=== PATIENT | female | born 1930 | race Caucasian/White ===

== ENCOUNTER 2018-09-05 17:57 | Inpatient (IN) | payer MEDICARE ==
--- NOTE | 2018-09-05 20:11 | ED Physician Chart ---
ED Chief Complaint/HPI - Patient Information Date Seen:: 09/05/18 Time Seen:: 20:10 Chief Complaint:: Weakness and edema of BLE History of Present Illness:: 88 yo female was brought by daughter to ER for evaluation of increasing weakness , decreased oral intake and edema of bilateral lower extremities. Pt oriented to self but non-verbal on arrival. Allergies:: Allergies Allergy/AdvReac Type Severity Reaction Status Date / Time codeine Allergy Verified 09/05/18 18:43 Vitals:: Vital Signs - 8 hr 09/05/18 18:45 Temp 98.1 F HR 71 RR 16 BP 164/85 O2 Sat % 98 ED Review of Systems - Review of Systems General/Constitutional: No fever, Weakness Skin: No rash Head: No headache Eyes: No pain ENT: No nasal drainage Neck: No neck pain Cardio Vascular: No chest pain, edema Pulmonary: No SOB GI: No nausea, No vomiting Musculoskeletal: No bone or joint pain Neurological: No focal symptoms ED Past Medical History - Past Medical History Past Medical History: HTN, DM, Dementia, Other (CKD stage 4) Social History: Non Smoker, No Alcohol, No Drug Use Family Medical History - Family Member Daughter History Unknown: Yes Living Status: Still Living ED Physical Exam - Physical Examination General/Constitutional: Awake, Alert Head: Atraumatic Eyes: PERRL Skin: No ecchymosis ENMT: Nasal exam nl Neck: No nuchal rigidity Respiratory: No Wheeze/Rhonchi/Rales Cardio Vascular: RRR, No murmur, gallop, rubs, NL S1 S2 GI: No tenderness/rebounding/guarding Other Extremities comments:: 1+ edema in bilateral lower extremities Neuro/Psych: No focal deficits ED Labs/Radiology/EKG Results - Lab Results Results: Laboratory Last Values WBC 10.6 Th/cmm (4.8-10.8) 09/06/18 05:30 RBC 4.02 Mil/cmm (3.80-5.20) 09/06/18 05:30 Hgb 12.2 gm/dL (12-16) 09/06/18 05:30 Hct 36.8 % (41.0-60) L 09/06/18 05:30 MCV 91.5 fl (81-100) 09/06/18 05:30 MCH 30.4 pg (27.0-31.0) 09/06/18 05:30 MCHC Differential 33.2 pg (28.0-36.0) 09/06/18 05:30 RDW 13.8 % (11.5-20.0) 09/06/18 05:30 Plt Count 216 Th/cmm (150-400) 09/06/18 05:30 MPV 8.0 fl 09/06/18 05:30 Neutrophils % 78.7 % (40.0-80.0) 09/06/18 05:30 Lymphocytes % 14.0 % (20.0-50.0) L 09/06/18 05:30 Monocytes % 4.8 % (2.0-10.0) 09/06/18 05:30 Eosinophils % 1.9 % (0.0-5.0) 09/06/18 05:30 Basophils % 0.6 % (0.0-2.0) 09/06/18 05:30 Sodium 144 mEq/L (136-145) 09/06/18 05:30 Potassium 4.2 mEq/L (3.5-5.1) 09/06/18 05:30 Chloride 109 mEq/L (98-107) H 09/06/18 05:30 Carbon Dioxide 28.6 mEq/L (21.0-31.0) 09/06/18 05:30 Anion Gap 10.6 (7.0-16.0) 09/06/18 05:30 BUN 32 mg/dL (7-25) H 09/06/18 05:30 Creatinine 1.5 mg/dL (0.6-1.2) H 09/06/18 05:30 Est GFR ( Amer) TNP 09/06/18 05:30 Est GFR (Non-Af Amer) TNP 09/06/18 05:30 BUN/Creatinine Ratio 21.3 09/06/18 05:30 Glucose 155 mg/dL (70-105) H D 09/06/18 05:30 Calcium 9.0 mg/dL (8.6-10.3) 09/06/18 05:30 Total Bilirubin 0.2 mg/dL (0.3-1.0) L 09/05/18 20:40 AST 18 U/L (13-39) 09/05/18 20:40 ALT 11 U/L (7-52) 09/05/18 20:40 Alkaline Phosphatase 96 U/L (34-104) 09/05/18 20:40 Troponin I 0.01 ng/mL (0.01-0.05) 09/05/18 20:40 B-Natriuretic Peptide 88.1 pg/mL (5.0-100.0) 09/05/18 20:40 Total Protein 7.3 gm/dL (6.0-8.3) 09/05/18 20:40 Albumin 3.5 gm/dL (3.7-5.3) L 09/05/18 20:40 Globulin 3.8 gm/dL 09/05/18 20:40 Albumin/Globulin Ratio 0.9 (1.0-1.8) L 09/05/18 20:40 TSH 2.69 uIU/ml (0.34-5.60) 09/05/18 20:40 Urine Source CLEAN C 09/05/18 23:10 Urine Color YELLOW 09/05/18 23:10 Urine Clarity HAZY (CLEAR) 09/05/18 23:10 Urine pH 7.0 (4.6 - 8.0) 09/05/18 23:10 Ur Specific [place] 1.020 (1.005-1.030) 09/05/18 23:10 Urine Protein TRACE mg/dL (NEGATIVE) 09/05/18 23:10 Urine Glucose (UA) 100 mg/dL (NEGATIVE) H 09/05/18 23:10 Urine Ketones NEGATIVE mg/dL (NEGATIVE) 09/05/18 23:10 Urine Blood NEGATIVE (NEGATIVE) 09/05/18 23:10 Urine Nitrate POSITIVE (NEGATIVE) H 09/05/18 23:10 Urine Bilirubin NEGATIVE (NEGATIVE) 09/05/18 23:10 Urine Urobilinogen 0.2 E.U./dL (0.2 - 1.0) 09/05/18 23:10 Ur Leukocyte Esterase TRACE (NEGATIVE) H 09/05/18 23:10 Urine RBC 0-2 /hpf (0-5) 09/05/18 23:10 Urine WBC 2-5 /hpf (0-5) 09/05/18 23:10 Ur Epithelial Cells FEW /lpf (FEW) 09/05/18 23:10 Urine Bacteria MANY /hpf (NONE SEEN) H 09/05/18 23:10 - Radiology Results Results: CXR: no focal consolidation - EKG Interpretations EKG Time:: 20:51 Rate & Rhythm: 76 bpm, Sinus rhythm [place]: normal P axis Intervals: QRSD 150 Comments:: Left bundle branch block ED Assessment - Assessment General Assessment: Leukocytosis Urinary tract infection Dehydration Hypertension Alzheimer's dementia Assessment/Comments:: CBC, CMP, Trop I, BNP, UA CXR, EKG Rocephin 1g NS 1L iv bolus ED Septic Shock - . Is Septic Shock (SBP<90, OR Lactate>4 mmol\L) present?: No - <6hrs of presentation: Vital Signs: Vital Signs - 8 hr 09/05/18 18:45 Temp 98.1 F HR 71 RR 16 BP 164/85 O2 Sat % 98 ED Reassessment (Disposition) - Reassessment Reassessment Condition:: Improved - Patient Disposition Discharge/Transfer:: Acute Care w/in this hosp Admitting Medical Physician:: Lele Lee
[2018-09-05 20:52] LABS: % BASOPHILS 0.2 % (0.0-2.0); % EOSINOPHILS 2.2 % (0.0-5.0); % LYMPHOCYTES 17.4 % (20.0-50.0); % MONOCYTES 4.1 % (2.0-10.0); % NEUTROPHILS 76.1 % (40.0-80.0); EOSINOPHILE ABSOLUTE 0.3 Th/cmm (0.1-0.4); LYMPHOCYTE ABSOLUTE 2.1 Th/cmm (1.5-3.0); MEAN CELL VOLUME 92.3 fl (81-100); MEAN CORPUSCULAR HEMOGLOBIN 30.1 pg (27.0-31.0); MEAN CORPUSCULAR HGB CONC 32.6 pg (28.0-36.0); MEAN PLATELET VOLUME 7.9 fl; MONOCYTE ABSOLUTE 0.5 Th/cmm (0.3-1.0); PLATELET COUNT 222 Th/cmm (150-400); RED BLOOD COUNT 4.33 Mil/cmm (3.80-5.20); RED CELL DISTRIBUTION WIDTH 14.2 % (11.5-20.0); WHITE BLOOD COUNT 11.9 Th/cmm (4.8-10.8)
[2018-09-05 21:07] LABS: ALB/GLOB RATIO 0.9 (1.0-1.8); ALBUMIN 3.5 gm/dL (3.7-5.3); ALKALINE PHOSPHATASE 96 U/L (34-104); ANION GAP 13.8 (7.0-16.0); BILIRUBIN,TOTAL 0.2 mg/dL (0.3-1.0); BUN - UREA NITROGEN 37 mg/dL (7-25); CALCIUM SERUM 9.2 mg/dL (8.6-10.3); CHLORIDE 106 mEq/L (98-107); CREATININE - SERUM 1.7 mg/dL (0.6-1.2); GLUCOSE 272 mg/dL (70-105); POTASSIUM SERUM 4.8 mEq/L (3.5-5.1); SGOT 18 U/L (13-39); SGPT/ALT 11 U/L (7-52); SODIUM SERUM 141 mEq/L (136-145); TOTAL PROTEIN,SERUM 7.3 gm/dL (6.0-8.3)
[2018-09-05 23:14] LABS: URINE SOURCE CLEAN C
[2018-09-05 23:16] LABS: URINE BILIRUBIN NEGATIVE (NEGATIVE); URINE BLOOD NEGATIVE (NEGATIVE); URINE GLUCOSE (UA) 100 mg/dL (NEGATIVE); URINE KETONE NEGATIVE (NEGATIVE); URINE LEUKOCYTE ESTERASE TRACE (NEGATIVE); URINE MICROSCOPIC INDICATED? YES; URINE NITRATE POSITIVE (NEGATIVE); URINE PROTEIN TRACE mg/dL (NEGATIVE); URINE UROBILINOGEN 0.2 E.U./dL (0.2 - 1.0)
[2018-09-05] MEDS: cefTRIAXone 1 GM in Sodium Chloride 0.9% 50 ML IV ONE (23:19)
[2018-09-05 23:23] LABS: URINE CLARITY HAZY (CLEAR); URINE COLOR YELLOW
[2018-09-05 23:25] LABS: URINE EPITHELIAL CELLS FEW /lpf (FEW); URINE RBC 0-2 /hpf (0-5)
[2018-09-05 23:26] LABS: URINE BACTERIA MANY /hpf (NONE SEEN)
[2018-09-06] MEDS ORDERED: Sodium Chloride 0.9% 1,000 ML IV ONE (00:07)
[2018-09-06] MEDS: cefTRIAXone 1 GM in Sodium Chloride 0.9% 50 ML IV ONE (01:09)
[2018-09-06] MEDS ORDERED: Influenza Vaccine (65 yr & older) 0.5 ml Syr IM ONE (02:26)
[2018-09-06 02:46] VITALS: BP 165/68
[2018-09-06] MEDS: D5-0.45NS 1,000 ML IV SCH (03:08)
[2018-09-06 06:28] LABS: % BASOPHILS 0.6 % (0.0-2.0); % EOSINOPHILS 1.9 % (0.0-5.0); % MONOCYTES 4.8 % (2.0-10.0); % NEUTROPHILS 78.7 % (40.0-80.0); BASOPHILE ABSOLUTE 0.1 Th/cumm (0-0.2); EOSINOPHILE ABSOLUTE 0.2 Th/cmm (0.1-0.4); HEMATOCRIT 36.8 % (41.0-60); HEMOGLOBIN 12.2 gm/dL (12-16); LYMPHOCYTE ABSOLUTE 1.5 Th/cmm (1.5-3.0); MEAN CELL VOLUME 91.5 fl (81-100); MEAN CORPUSCULAR HEMOGLOBIN 30.4 pg (27.0-31.0); MEAN CORPUSCULAR HGB CONC 33.2 pg (28.0-36.0); MONOCYTE ABSOLUTE 0.5 Th/cmm (0.3-1.0); NEUTROPHILE ABSOLUTE 8.3 Th/cmm (1.8-8.0); PLATELET COUNT 216 Th/cmm (150-400); RED BLOOD COUNT 4.02 Mil/cmm (3.80-5.20); RED CELL DISTRIBUTION WIDTH 13.8 % (11.5-20.0); WHITE BLOOD COUNT 10.6 Th/cmm (4.8-10.8)
[2018-09-06 06:45] LABS: ANION GAP 10.6 (7.0-16.0); BUN - UREA NITROGEN 32 mg/dL (7-25); CARBON DIOXIDE 28.6 mEq/L (21.0-31.0); CHLORIDE 109 mEq/L (98-107); CREATININE - SERUM 1.5 mg/dL (0.6-1.2); POTASSIUM SERUM 4.2 mEq/L (3.5-5.1); SODIUM SERUM 144 mEq/L (136-145)
[2018-09-06 07:07] LABS: GLUCOSE 155 mg/dL (70-105)
--- NOTE | 2018-09-06 08:20 | Diagnostic Imaging Report ---
Chest x-ray single view History: Shortness of breath Comparison: None The heart size is normal. No focal pulmonary parenchymal processes. No hilar or mediastinal abnormalities. Impression: No acute abnormalities
[2018-09-06] MEDS ORDERED: Fluticasone Propionate Nasal 1 SPR SPR NS PRN (20:26)
--- NOTE | 2018-09-06 21:50 | History & Physical ---
ADMIT DATE: 09/06/2018 HISTORY OF PRESENT ILLNESS: This patient came to the Emergency Room at around 8:00 on 08/05/2018. The patient was seen by Dr. Demarco. The patient is complaining of increasing weakness, decreasing oral intake and the patient has bilateral lower leg extremity edema. The patient was oriented for self and nonverbal. The patient had no fever, no chills. Complaining of weakness, complaining of bilateral leg pain. The patient has bilateral leg edema. REVIEW OF SYSTEMS: Otherwise, negative. PAST MEDICAL HISTORY: History of hypertension, diabetes, dementia and CKD. PHYSICAL EXAMINATION: HEAD: Normal. ENT: Normal. NECK: Supple, nontender. LUNGS: Bilaterally decreased. CARDIOVASCULAR SYSTEM: S1 and S2 heard. ABDOMEN: Soft. EXTREMITIES: Bilateral leg edema and some evidence of cellulitis. LABORATORY DATA: White count was 10.3 and BUN and creatinine were slightly elevated at 32 and 1.5. DIAGNOSES: Leukocytosis, cellulitis, urinary tract infection, dehydration, hypertension, Alzheimer's disease, dementia and history of chronic kidney disease was made. PLAN: The patient is being admitted. The patient was given Rocephin 1 gram, which I will continue and I will have ID doctor see the patient. I will have Nephrology see the patient as well as Neurology see the patient and I will follow the patient. JOB# [id number]
[2018-09-07] MEDS: cefTRIAXone 1 GM in Sodium Chloride 0.9% 50 ML IV SCH (01:11)
[2018-09-07] MEDS ORDERED: CITRATE PO SCH (09:00)
[2018-09-07] MEDS ORDERED: VIT D3 PO SCH (09:00)
[2018-09-07] MEDS ORDERED: CALCIUM CARB PO SCH (09:00)
[2018-09-07] MEDS ORDERED: Aspirin 81mg Chewable Tab PO SCH (09:00)
[2018-09-07] MEDS: Aspirin 81mg Chewable Tab PO SCH (09:44)
[2018-09-07] MEDS: Calcium Carb/Vit D 500 mg/200 U Tab PO SCH ×2 (09:44→16:11)
--- NOTE | 2018-09-07 13:56 | Consultation ---
Consult Note - Consult Note Service Date: 09/07/18 Referring Physician: Lele Lee Consult Note: PHYSICIAN Consultation Note: dictated. Reji Maxwell Devesh N., M.D. [id number]
--- NOTE | 2018-09-07 20:50 | Internal Medicine Prog Note ---
Internal Medicine Objective - Results Result Diagrams: 09/06/18 05:30 09/06/18 05:30 Recent Labs: Laboratory Last Values WBC 10.6 Th/cmm (4.8-10.8) 09/06/18 05:30 RBC 4.02 Mil/cmm (3.80-5.20) 09/06/18 05:30 Hgb 12.2 gm/dL (12-16) 09/06/18 05:30 Hct 36.8 % (41.0-60) L 09/06/18 05:30 MCV 91.5 fl (81-100) 09/06/18 05:30 MCH 30.4 pg (27.0-31.0) 09/06/18 05:30 MCHC Differential 33.2 pg (28.0-36.0) 09/06/18 05:30 RDW 13.8 % (11.5-20.0) 09/06/18 05:30 Plt Count 216 Th/cmm (150-400) 09/06/18 05:30 MPV 8.0 fl 09/06/18 05:30 Neutrophils % 78.7 % (40.0-80.0) 09/06/18 05:30 Lymphocytes % 14.0 % (20.0-50.0) L 09/06/18 05:30 Monocytes % 4.8 % (2.0-10.0) 09/06/18 05:30 Eosinophils % 1.9 % (0.0-5.0) 09/06/18 05:30 Basophils % 0.6 % (0.0-2.0) 09/06/18 05:30 Sodium 144 mEq/L (136-145) 09/06/18 05:30 Potassium 4.2 mEq/L (3.5-5.1) 09/06/18 05:30 Chloride 109 mEq/L (98-107) H 09/06/18 05:30 Carbon Dioxide 28.6 mEq/L (21.0-31.0) 09/06/18 05:30 Anion Gap 10.6 (7.0-16.0) 09/06/18 05:30 BUN 32 mg/dL (7-25) H 09/06/18 05:30 Creatinine 1.5 mg/dL (0.6-1.2) H 09/06/18 05:30 Est GFR ( Amer) TNP 09/06/18 05:30 Est GFR (Non-Af Amer) TNP 09/06/18 05:30 BUN/Creatinine Ratio 21.3 09/06/18 05:30 Glucose 155 mg/dL (70-105) H D 09/06/18 05:30 POC Glucose 126 MG/DL (70 - 105) H 09/06/18 15:18 Calcium 9.0 mg/dL (8.6-10.3) 09/06/18 05:30 Total Bilirubin 0.2 mg/dL (0.3-1.0) L 09/05/18 20:40 AST 18 U/L (13-39) 09/05/18 20:40 ALT 11 U/L (7-52) 09/05/18 20:40 Alkaline Phosphatase 96 U/L (34-104) 09/05/18 20:40 Troponin I 0.01 ng/mL (0.01-0.05) 09/05/18 20:40 B-Natriuretic Peptide 88.1 pg/mL (5.0-100.0) 09/05/18 20:40 Total Protein 7.3 gm/dL (6.0-8.3) 09/05/18 20:40 Albumin 3.5 gm/dL (3.7-5.3) L 09/05/18 20:40 Globulin 3.8 gm/dL 09/05/18 20:40 Albumin/Globulin Ratio 0.9 (1.0-1.8) L 09/05/18 20:40 TSH 2.69 uIU/ml (0.34-5.60) 09/05/18 20:40 Urine Source CLEAN C 09/05/18 23:10 Urine Color YELLOW 09/05/18 23:10 Urine Clarity HAZY (CLEAR) 09/05/18 23:10 Urine pH 7.0 (4.6 - 8.0) 09/05/18 23:10 Ur Specific [place] 1.020 (1.005-1.030) 09/05/18 23:10 Urine Protein TRACE mg/dL (NEGATIVE) 09/05/18 23:10 Urine Glucose (UA) 100 mg/dL (NEGATIVE) H 09/05/18 23:10 Urine Ketones NEGATIVE mg/dL (NEGATIVE) 09/05/18 23:10 Urine Blood NEGATIVE (NEGATIVE) 09/05/18 23:10 Urine Nitrate POSITIVE (NEGATIVE) H 09/05/18 23:10 Urine Bilirubin NEGATIVE (NEGATIVE) 09/05/18 23:10 Urine Urobilinogen 0.2 E.U./dL (0.2 - 1.0) 09/05/18 23:10 Ur Leukocyte Esterase TRACE (NEGATIVE) H 09/05/18 23:10 Urine RBC 0-2 /hpf (0-5) 09/05/18 23:10 Urine WBC 2-5 /hpf (0-5) 09/05/18 23:10 Ur Epithelial Cells FEW /lpf (FEW) 09/05/18 23:10 Urine Bacteria MANY /hpf (NONE SEEN) H 09/05/18 23:10 Ur Random Sodium 137 mmol/L 09/07/18 18:00 Urine Creatinine 41.0 mg/dl (28.0-217.0) 09/07/18 18:00 - Physical Exam Vitals and I&O: Vital Signs Temp 98.1 F 09/07/18 20:00 Pulse 76 09/07/18 20:00 Resp 20 09/07/18 20:00 BP 151/54 09/07/18 20:00 Pulse Ox 95 09/07/18 20:00 Intake & Output 09/07/18 09/07/18 09/08/18 06:59 18:59 06:59 Intake Total 240 720 Output Total 300 Balance 240 420 Weight (lbs) 80.739 kg 80.739 kg Intake: Oral 240 720 Output: Urine 300 Other: # Voids 3 3 # Bowel Movements 0 Weight Source Estimated Estimated Active Medications: Current Medications Amlodipine Besylate (Norvasc) 10 mg PO DAILY [facility] Stop: 11/06/18 08:59 Last Admin: 09/07/18 09:44 Dose: 10 mg Aspirin (Aspirin Chewable) 81 mg PO DAILY [facility] Stop: 11/06/18 08:59 Last Admin: 09/07/18 09:44 Dose: 81 mg Atenolol (Tenormin) 25 mg PO DAILY [facility] Stop: 11/06/18 08:59 Last Admin: 09/07/18 09:45 Dose: 25 mg Calcium/Vitamin D (Oscal W/Vitamin D) 1 tab PO BID [facility] Stop: 11/06/18 08:59 Last Admin: 09/07/18 16:11 Dose: 1 tab Docusate Sodium (Colace) 100 mg PO DAILY [facility] Stop: 11/06/18 08:59 Last Admin: 09/07/18 09:44 Dose: 100 mg Donepezil HCl (Aricept) 10 mg PO HS [facility] Stop: 11/05/18 20:59 Last Admin: 09/06/18 21:55 Dose: 10 mg Fluticasone Propionate (Flonase) 1 spr NS DAILY PRN PRN Reason: Nasal Congestion Stop: 11/05/18 20:25 Glipizide (Glucotrol) 5 mg PO DAILY [facility] Stop: 11/06/18 08:59 Last Admin: 09/07/18 09:44 Dose: 5 mg Dextrose/Sodium Chloride (D5-0.45ns) 1,000 mls @ 75 mls/hr IV .[id number] [facility] Stop: 11/05/18 02:03 Last Admin: 09/06/18 03:08 Dose: 75 mls/hr Ceftriaxone Sodium 1 gm/ (Sodium Chloride) 50 mls @ 100 mls/hr IV Q24HR [facility] Stop: 09/13/18 01:29 Last Admin: 09/07/18 01:11 Dose: 100 mls/hr Megestrol Acetate (Megace) 40 mg PO DAILY [facility]; Protocol Stop: 11/06/18 14:44 Last Admin: 09/07/18 16:18 Dose: 40 mg Memantine (Namenda) 5 mg PO BID [facility] Stop: 11/06/18 08:59 Last Admin: 09/07/18 16:11 Dose: 5 mg Mirtazapine (Remeron) 15 mg PO [facility]; Protocol Stop: 11/05/18 20:59 Last Admin: 09/06/18 21:56 Dose: 15 mg Simvastatin (Zocor) 20 mg PO [facility] Stop: 11/05/18 20:59 Last Admin: 09/06/18 21:56 Dose: 20 mg Nutritional Asmnt/Malnutr-PDOC - Dietary Evaluation Malnutrition Findings (Please click <Entered> for more info): Nutritional Asmnt/Malnutrition Start: 09/06/18 15: 04 Text: Status: Complete Freq: Protocol: Document 09/06/18 15:04 ROMANAG (Rec: 09/06/18 15:12 [email or web address] [email or web address]) Nutritional Asmnt/Malnutrition Patient General Information Nutritional Screening High Risk Diagnosis UTI Pertinent Medical Hx/Surgical Hx HTN, DM, dementia, CKD 4 Subjective Information Pt seen sleeping in bed at time of visit. Per nurse note, pt refused breakfast and lunch. Current Diet Order/ Nutrition Support CCHO 60gm Pertinent Medications D5-0.45ns Pertinent Labs 09/06 Cl 109, BUN 32, Cr 1.5, glucose 155 09/05 BUN 37, Cr 1.7, GLucose 272 Nutritional Hx/Data Height 1.27 m Height (Calculated Centimeters) 127.0 Current Weight (lbs) 80.739 kg Weight (Calculated Kilograms) 80.7 Weight (Calculated Grams) 39676.4 [place] Body Weight 80 Body Mass Index (BMI) 50.1 Weight Status Obese GI Symptoms GI Symptoms None Last BM none Difficult in: None Skin Integrity/Comment: intact Current %PO Negligible < 25% Estimated Nutritional Goals BEE in Kcals: Adj wt of IBW Calories/Kcals/Kg 25-30 ajd wt 48kg Kcals Calculated 0092-1205 Protein: Adj wt of IBW Protein g/k Protein Calculated 48 Fluid: ml 1200-1440ml (1ml/kcal) Nutritional Problem 1. Problem Problem inadequate food intake Etiology poor appetite Signs/Symptoms: PO itnake <10% Malnutrition Alert Is there a minimum of two criteria No selected? Query Text:Check all the applicable criteria. A minimum of two criteria are recommended for diagnosis of either severe or non-severe malnutrition. Malnutrition Related to Morbid Obesity Malnutrition related to morbid obesity No Intervention/Recommendation Comments 1. Continue with CCHO 60gm diet as ordered. Considering poor PO intake, no need for protein limit at this time. MD to consider appetite stimulant if PO intake continue low. 2. Monitor PO intake, wt, labs and skin integrity 3. F/U as high risk in 2-3 days Expected Outcomes/Goals Expected Outcomes/Goals 1. PO intake to meet at least 75% of nutritional needs. 2. Wt stability, skin to remain intact, labs to approach WNL.
[2018-09-07 22:10] LABS: EOSINOPHIL SMEAR SOURCE URINE
[2018-09-07 22:11] LABS: EOSINOPHILS SMEAR COUNT NONE SEEN (NONE SEEN)
[2018-09-08] MEDS: cefTRIAXone 1 GM in Sodium Chloride 0.9% 50 ML IV SCH (01:04)
--- NOTE | 2018-09-08 01:18 | Consultation ---
DATE OF CONSULTATION: 09/07/2018 INFECTIOUS DISEASE CONSULTATION REFERRING PHYSICIAN: Dr. Lee. REASON FOR CONSULTATION: UTI and cellulitis. HISTORY OF PRESENT ILLNESS: The patient is an 88-year-old female with past medical history of dementia, hypertension, diabetes mellitus type 2, CKD, brought in from nursing facility for increasing weakness and decreased oral intake. The patient also developed bilateral leg swelling. The patient is nonverbal, aphasic. Unable to provide any history. History is taken from the chart. On initial evaluation, the patient was afebrile and the patient's WBC count was 11,900. Urinalysis showed bacteriuria. She was started on Rocephin. ID consult was called for further antibiotic management. PAST MEDICAL HISTORY: Includes dementia, hypertension, diabetes mellitus type 2, CKD. SOCIAL HISTORY: The patient lives at nursing facility. No history of smoking, alcohol or drug use. REVIEW OF SYSTEMS: Unable to obtain. PHYSICAL EXAMINATION: VITAL SIGNS: Current vital signs shows temperature is 97.4, pulse 57, respiration 18, blood pressure 156/63. GENERAL: The patient is comfortable, lying in the bed, not in acute distress. HEENT: Head is normocephalic, atraumatic. Oral cavity moist, pink tongue. NECK: Supple, no JVD, no carotid bruit. Trachea in midline. CHEST: Bilateral breath sounds. No crackles or wheezing. HEART: S1, S2 within normal limits. Regular rhythm. No murmur, no gallop. ABDOMEN: Soft, nontender, nondistended. Bowel sounds present. EXTREMITIES: No cyanosis, no clubbing. Edema present. LABORATORY DATA: Current lab shows WBC count is 10,600, hemoglobin is 12.2, hematocrit is 36.8, platelets are 216,000, neutrophils 78.7%. Sodium 144, potassium 4.2, chloride 109, bicarbonate is 29, BUN is 32, creatinine 1.5, glucose is 155. Urinalysis showed bacteria many with hazy urine, wbcs 2-5, leukoesterase. IMPRESSION: 1. Urinary tract infection. 2. Bilateral leg edema, mild cellulitis. 3. Dementia. 4. Diabetes mellitus type 2. 5. Hypertension. 6. Chronic kidney disease. RECOMMENDATIONS: Continue Rocephin. If the patient is stable, may change antibiotic to Levaquin 250 mg p.o. daily to complete 7-day course. Final antibiotic as per the culture reports. Thank you, Dr. Lee for involving me in taking care of this patient. JOB# [id number]
--- NOTE | 2018-09-08 03:56 | Consultation ---
DATE OF CONSULTATION: 09/07/2018 ATTENDING: Niraj Lee M.D. GASKET INSPECTOR: William Montero M.D. REASON FOR CONSULTATION: For worsening kidney function, electrolyte imbalance, and fluid management. HISTORY OF PRESENT ILLNESS: This is an 88-year-old female with past medical history of Alzheimer's dementia, who was brought in because of failure to thrive. Three days prior to admission, the patient was noted to have progressive weakness. Simultaneously, her appetite had also gradually deteriorated. A few hours prior to admission, she had generalized weakness and could barely move. Thus, daughter was alerted and prompted her to take the patient to the Emergency Room. Chest x-ray revealed no acute disease. Her white count was 11.9 with a BNP of 88.1. Urinalysis was suggestive of a urinary tract infection. Her BUN/creatinine were 37/1.7. There was no mention of any diarrhea nor nausea and vomiting. PAST MEDICAL HISTORY: 1. Chronic kidney disease. 2. Alzheimer dementia. 3. Essential hypertension. 4. Type 2 diabetes mellitus. 5. Dyslipidemia. CURRENT MEDICATIONS: Currently on amlodipine, aspirin, atenolol, calcium carbonate, ceftriaxone, docusate sodium, donepezil, fluticasone, furosemide, glipizide, Namenda, mirtazapine, simvastatin. ALLERGIES: Allergic to CODEINE. SOCIAL AND FAMILY HISTORY: I was not able to obtain from the patient because she is nonverbal. REVIEW OF SYSTEMS: Again, I was not able to decipher because of the same reason. PHYSICAL EXAMINATION: GENERAL: The patient is awake, but nonverbal, does not look to be in any kind of distress. VITAL SIGNS: Her blood pressure is 156/63, pulse 67, temperature 97.4 degrees. SKIN: Poor turgor, warm, no rash, no jaundice appreciated. HEENT: Head: Normocephalic, atraumatic. Eyes: Extraocular muscles intact. Pupils equal, round, reactive to light and accommodates. Anicteric sclerae. Pale conjunctivae. Nose: Midline nasal septum. Mouth: Dry mucosa. Poor dentition. NECK: Supple, no adenopathy, no thyromegaly, no bruits. Trachea palpated in the midline. CHEST AND CVS: S1, S2. No rub, murmur, nor gallop appreciated. Point of maximal impulse fifth intercostal space, left midclavicular line. No abdominal or femoral bruits appreciated. LUNGS: Equal expansion. No use of accessory muscles. No supraclavicular retractions. Decreased breath sounds, scattered rhonchi, but no rales nor wheezes appreciated. BREASTS: Symmetrical without any discharge. ABDOMEN: Flat, soft, positive for bowel sounds. No bruits either diastolic or systolic. RECTAL: Lax sphincter tone. GENITOURINARY: Normal appearing female genitalia. MUSCULOSKELETAL: No effusions present in her joints, unable to assess her range of motion. EXTREMITIES: No evidence of edema, cyanosis, nor clubbing with palpable femoral, popliteal and dorsalis pedis pulses. NEUROLOGIC: The patient is awake, remains nonverbal, so I was not able to pursue further my neuro exam. LABORATORY DATA AND STUDIES: Labs did reveal white count 10.6, hemoglobin 12.2, hematocrit 36.8, platelets 216, polys 78.7%. Sodium 144, potassium 4.2, chloride 109, CO2 28, BUN 32, creatinine 1.5, glucose 155, calcium is 9. IMPRESSION: 1. Chronic kidney disease. The patient has chronic kidney disease. The patient has underlying longstanding history of diabetes for which she may have developed diabetic nephropathy with also show some presence of hypertensive nephrosclerosis. For acute kidney injury, this probably started out as prerenal azotemia. As mentioned, the patient had several days of poor oral intake including fluids to replenish both sensible and insensible fluid losses. Physical exam revealed a very dry oral mucosa with poor skin turgor. Urinalysis had a very concentrated urine. These are suggestive of presence of dehydration. Her prerenal azotemia eventually progressed to acute tubular injury. She has also possibility of underlying complicated urinary tract infection, which could eventually give rise to development of acute interstitial nephritis. 2. Failure to thrive with weakness, possibly due to depression, or even secondary to metabolic nature such as sepsis with the presence of a complicated urinary tract infection. 3. Alzheimer dementia. 4. Essential hypertension with chronic kidney disease. 5. Type 2 diabetes mellitus with chronic kidney disease. 6. Dyslipidemia. PLAN: 1. Urine sodium, eosinophils, and creatinine. 2. Urine microalbumin to creatinine ratio. 3. Renal ultrasound. 4. I agree with IV hydration. 5. Encourage p.o. intake. 6. Start the patient on Megace. 7. Discontinue furosemide. 8. Follow up electrolytes, uric acid, and hemoglobin A1c. [facility]# [id number]
[2018-09-08 05:52] LABS: ANION GAP 11.1 (7.0-16.0); BUN - UREA NITROGEN 18 mg/dL (7-25); CALCIUM SERUM 9.3 mg/dL (8.6-10.3); CARBON DIOXIDE 26.9 mEq/L (21.0-31.0); CHLORIDE 105 mEq/L (98-107); CREATININE - SERUM 1.2 mg/dL (0.6-1.2); GLUCOSE 175 mg/dL (70-105); MAGNESIUM 1.9 mg/dL (1.9-2.7); PHOSPHOROUS 3.5 mg/dL (2.5-5.0); SODIUM SERUM 139 mEq/L (136-145); URIC ACID 6.1 mg/dL (2.3-6.6)
[2018-09-08 06:32] LABS: % BASOPHILS 0.3 % (0.0-2.0); % EOSINOPHILS 2.8 % (0.0-5.0); % LYMPHOCYTES 20.4 % (20.0-50.0); % MONOCYTES 7.1 % (2.0-10.0); % NEUTROPHILS 69.4 % (40.0-80.0); EOSINOPHILE ABSOLUTE 0.3 Th/cmm (0.1-0.4); HEMOGLOBIN 12.6 gm/dL (12-16); LYMPHOCYTE ABSOLUTE 2.2 Th/cmm (1.5-3.0); MEAN CELL VOLUME 92.9 fl (81-100); MEAN CORPUSCULAR HGB CONC 33.3 pg (28.0-36.0); MEAN PLATELET VOLUME 8.2 fl; MONOCYTE ABSOLUTE 0.8 Th/cmm (0.3-1.0); NEUTROPHILE ABSOLUTE 7.4 Th/cmm (1.8-8.0); PLATELET COUNT 218 Th/cmm (150-400); RED BLOOD COUNT 4.08 Mil/cmm (3.80-5.20); RED CELL DISTRIBUTION WIDTH 13.7 % (11.5-20.0); WHITE BLOOD COUNT 10.7 Th/cmm (4.8-10.8)
[2018-09-08] MEDS: D5-0.45NS 1,000 ML IV SCH (06:49)
--- NOTE | 2018-09-08 07:58 | Diagnostic Imaging Report ---
Exam: Renal ultrasound HISTORY: Chronic renal disease. Findings: Real-time ultrasound of the kidneys performed multiple planes. The study demonstrates no evidence of obstructive uropathy or nephrolithiasis. Right kidney measures 9.1 x 4.6 x 3.8 cm in diameter, left kidney measures 7.3 x 4.5 x 4.2 cm diameter. Poor corticomedullary differentiation is noted might be related to medical renal disease. The study is extremely limited due to size of patient and large amount of intra-abdominal bowel gas There is evidence for a small . .7 x 1.3 cm cyst in the left upper renal pole. The patient is incontinent. IMPRESSION: normal limited examination of kidneys bilaterally. The study is limited due to patient size in large amount of intra-abdominal bowel gas..
[2018-09-08] MEDS: Calcium Carb/Vit D 500 mg/200 U Tab PO SCH ×2 (08:57→17:18)
[2018-09-08] MEDS: Aspirin 81mg Chewable Tab PO SCH (08:58)
[2018-09-08] MEDS ORDERED: Probiotic Screen MC PRN (12:54)
--- NOTE | 2018-09-08 13:22 | Internal Medicine Prog Note ---
Internal Medicine Subjective - Subjective Service Date: 09/08/18 Patient seen and examined:: with staff Patient is:: awake Per staff patient has:: tolerating meds Internal Medicine Objective - Results Result Diagrams: 09/08/18 05:10 09/08/18 05:10 Recent Labs: Laboratory Last Values WBC 10.7 Th/cmm (4.8-10.8) 09/08/18 05:10 RBC 4.08 Mil/cmm (3.80-5.20) 09/08/18 05:10 Hgb 12.6 gm/dL (12-16) 09/08/18 05:10 Hct 38.0 % (41.0-60) L 09/08/18 05:10 MCV 92.9 fl (81-100) 09/08/18 05:10 MCH 31.0 pg (27.0-31.0) 09/08/18 05:10 MCHC Differential 33.3 pg (28.0-36.0) 09/08/18 05:10 RDW 13.7 % (11.5-20.0) 09/08/18 05:10 Plt Count 218 Th/cmm (150-400) 09/08/18 05:10 MPV 8.2 fl 09/08/18 05:10 Neutrophils % 69.4 % (40.0-80.0) 09/08/18 05:10 Lymphocytes % 20.4 % (20.0-50.0) 09/08/18 05:10 Monocytes % 7.1 % (2.0-10.0) 09/08/18 05:10 Eosinophils % 2.8 % (0.0-5.0) 09/08/18 05:10 Basophils % 0.3 % (0.0-2.0) 09/08/18 05:10 Eos Smear Source URINE 09/07/18 18:00 Eos Smear Total Cells NONE SEEN (NONE SEEN) 09/07/18 18:00 Sodium 139 mEq/L (136-145) 09/08/18 05:10 Potassium 4.0 mEq/L (3.5-5.1) 09/08/18 05:10 Chloride 105 mEq/L (98-107) 09/08/18 05:10 Carbon Dioxide 26.9 mEq/L (21.0-31.0) 09/08/18 05:10 Anion Gap 11.1 (7.0-16.0) 09/08/18 05:10 BUN 18 mg/dL (7-25) 09/08/18 05:10 Creatinine 1.2 mg/dL (0.6-1.2) 09/08/18 05:10 Est GFR ( Amer) TNP 09/08/18 05:10 Est GFR (Non-Af Amer) TNP 09/08/18 05:10 BUN/Creatinine Ratio 15.0 09/08/18 05:10 Glucose 175 mg/dL (70-105) H 09/08/18 05:10 POC Glucose 126 MG/DL (70 - 105) H 09/06/18 15:18 Whole Bld Lactic Acid 1.46 mmol/L (0.60-1.99) 09/08/18 05:10 Uric Acid 6.1 mg/dL (2.3-6.6) 09/08/18 05:10 Calcium 9.3 mg/dL (8.6-10.3) 09/08/18 05:10 Phosphorus 3.5 mg/dL (2.5-5.0) 09/08/18 05:10 Magnesium 1.9 mg/dL (1.9-2.7) 09/08/18 05:10 Total Bilirubin 0.2 mg/dL (0.3-1.0) L 09/05/18 20:40 AST 18 U/L (13-39) 09/05/18 20:40 ALT 11 U/L (7-52) 09/05/18 20:40 Alkaline Phosphatase 96 U/L (34-104) 09/05/18 20:40 Troponin I 0.01 ng/mL (0.01-0.05) 09/05/18 20:40 B-Natriuretic Peptide 88.1 pg/mL (5.0-100.0) 09/05/18 20:40 Total Protein 7.3 gm/dL (6.0-8.3) 09/05/18 20:40 Albumin 3.5 gm/dL (3.7-5.3) L 09/05/18 20:40 Globulin 3.8 gm/dL 09/05/18 20:40 Albumin/Globulin Ratio 0.9 (1.0-1.8) L 09/05/18 20:40 TSH 2.69 uIU/ml (0.34-5.60) 09/05/18 20:40 Urine Source CLEAN C 09/05/18 23:10 Urine Color YELLOW 09/05/18 23:10 Urine Clarity HAZY (CLEAR) 09/05/18 23:10 Urine pH 7.0 (4.6 - 8.0) 09/05/18 23:10 Ur Specific [place] 1.020 (1.005-1.030) 09/05/18 23:10 Urine Protein TRACE mg/dL (NEGATIVE) 09/05/18 23:10 Urine Glucose (UA) 100 mg/dL (NEGATIVE) H 09/05/18 23:10 Urine Ketones NEGATIVE mg/dL (NEGATIVE) 09/05/18 23:10 Urine Blood NEGATIVE (NEGATIVE) 09/05/18 23:10 Urine Nitrate POSITIVE (NEGATIVE) H 09/05/18 23:10 Urine Bilirubin NEGATIVE (NEGATIVE) 09/05/18 23:10 Urine Urobilinogen 0.2 E.U./dL (0.2 - 1.0) 09/05/18 23:10 Ur Leukocyte Esterase TRACE (NEGATIVE) H 09/05/18 23:10 Urine RBC 0-2 /hpf (0-5) 09/05/18 23:10 Urine WBC 2-5 /hpf (0-5) 09/05/18 23:10 Ur Epithelial Cells FEW /lpf (FEW) 09/05/18 23:10 Urine Bacteria MANY /hpf (NONE SEEN) H 09/05/18 23:10 Ur Random Sodium 137 mmol/L 09/07/18 18:00 Urine Creatinine 41.0 mg/dl (28.0-217.0) 09/07/18 18:00 Microalb/Creat Ratio 273.6 mg/g creat (0.0-30.0) H 09/07/18 18:00 - Physical Exam Vitals and I&O: Vital Signs Temp 96.0 F 09/08/18 11:36 Pulse 66 09/08/18 11:36 Resp 17 09/08/18 11:36 BP 122/43 09/08/18 11:36 Pulse Ox 98 09/08/18 11:36 Intake & Output 02/14/19 02/15/19 02/15/19 18:59 06:59 18:59 Intake Total 720 50 Output Total 300 Balance 420 50 Weight (lbs) 178 lb 178 lb Intake: Intake, IV Amount 50 cefTRIAXone 1 gm In 50 Sodium Chloride 0.9% 50 ml @ 100 mls/hr IV Q24HR [facility] Rx#:[id number] Oral 720 Output: Urine 300 Other: # Voids 3 2 # Bowel Movements 0 0 Weight Source Estimated Bedscale Active Medications: Current Medications Amlodipine Besylate (Norvasc) 10 mg PO DAILY [facility] Stop: 11/06/18 08:59 Last Admin: 09/08/18 08:57 Dose: 10 mg Aspirin (Aspirin Chewable) 81 mg PO DAILY [facility] Stop: 11/06/18 08:59 Last Admin: 09/08/18 08:58 Dose: 81 mg Atenolol (Tenormin) 25 mg PO DAILY [facility] Stop: 11/06/18 08:59 Last Admin: 09/08/18 08:57 Dose: 25 mg Calcium/Vitamin D (Oscal W/Vitamin D) 1 tab PO BID [facility] Stop: 11/06/18 08:59 Last Admin: 09/08/18 08:57 Dose: 1 tab Docusate Sodium (Colace) 100 mg PO DAILY [facility] Stop: 11/06/18 08:59 Last Admin: 09/08/18 08:57 Dose: 100 mg Donepezil HCl (Aricept) 10 mg PO HS [facility] Stop: 11/05/18 20:59 Last Admin: 09/07/18 21:35 Dose: 10 mg Fluticasone Propionate (Flonase) 1 spr NS DAILY PRN PRN Reason: Nasal Congestion Stop: 11/05/18 20:25 Glipizide (Glucotrol) 5 mg PO DAILY [facility] Stop: 11/06/18 08:59 Last Admin: 09/08/18 08:58 Dose: 5 mg Dextrose/Sodium Chloride (D5-0.45ns) 1,000 mls @ 75 mls/hr IV .[id number] [facility] Stop: 11/05/18 02:03 Last Admin: 09/08/18 06:49 Dose: 75 mls/hr Ceftriaxone Sodium 1 gm/ (Sodium Chloride) 50 mls @ 100 mls/hr IV Q24HR [facility] Stop: 09/13/18 01:29 Last Infusion: 09/08/18 01:41 Dose: Infused Lactobacillus Rhamnosus (Culturelle 15b) 1 each PO DAILY [facility] Stop: 11/08/18 08:59 Megestrol Acetate (Megace) 40 mg PO DAILY [facility]; Protocol Stop: 11/06/18 14:44 Last Admin: 09/08/18 08:58 Dose: 40 mg Memantine (Namenda) 5 mg PO BID [facility] Stop: 11/06/18 08:59 Last Admin: 09/08/18 08:58 Dose: 5 mg Mirtazapine (Remeron) 15 mg PO HS [facility]; Protocol Stop: 11/05/18 20:59 Last Admin: 09/07/18 21:35 Dose: 15 mg Miscellaneous (Probiotic Screen) 1 ea MC PRN PRN PRN Reason: PROTOCOL Stop: 11/07/18 12:53 Simvastatin (Zocor) 20 mg PO HS [facility] Stop: 11/05/18 20:59 Last Admin: 09/07/18 21:35 Dose: 20 mg General: weak HEENT: NC/AT, PERRLA Neck: Supple Lungs: CTAB Extremities: rash Internal Medicine Assmt/Plan - Assessment Assessment: acute uti ble edema poss cellulitis dementia dm2 htn ckd - Plan Plan: iv rocephin to cont await for urine cx am labs Nutritional Asmnt/Malnutr-PDOC - Dietary Evaluation Malnutrition Findings (Please click <Entered> for more info): Nutritional Asmnt/Malnutrition Start: 09/06/18 15: 04 Text: Status: Complete Freq: Protocol: Document 09/06/18 15:04 LCHENG (Rec: 09/06/18 15:12 [email or web address]) Nutritional Asmnt/Malnutrition Patient General Information Nutritional Screening High Risk Diagnosis UTI Pertinent Medical Hx/Surgical Hx HTN, DM, dementia, CKD 4 Subjective Information Pt seen sleeping in bed at time of visit. Per nurse note, pt refused breakfast and lunch. Current Diet Order/ Nutrition Support CCHO 60gm Pertinent Medications D5-0.45ns Pertinent Labs 09/06 Cl 109, BUN 32, Cr 1.5, glucose 155 09/05 BUN 37, Cr 1.7, GLucose 272 Nutritional Hx/Data Height 4 ft 2 in Height (Calculated Centimeters) 127.0 Current Weight (lbs) 178 lb Weight (Calculated Kilograms) 80.7 Weight (Calculated Grams) 53140.4 [place] Body Weight 80 Body Mass Index (BMI) 50.1 Weight Status Obese GI Symptoms GI Symptoms None Last BM none Difficult in: None Skin Integrity/Comment: intact Current %PO Negligible < 25% Estimated Nutritional Goals BEE in Kcals: Adj wt of IBW Calories/Kcals/Kg 25-30 ajd wt 48kg Kcals Calculated 3256-0765 Protein: Adj wt of IBW Protein g/k Protein Calculated 48 Fluid: ml 1200-1440ml (1ml/kcal) Nutritional Problem 1. Problem Problem inadequate food intake Etiology poor appetite Signs/Symptoms: PO itnake <10% Malnutrition Alert Is there a minimum of two criteria No selected? Query Text:Check all the applicable criteria. A minimum of two criteria are recommended for diagnosis of either severe or non-severe malnutrition. Malnutrition Related to Morbid Obesity Malnutrition related to morbid obesity No Intervention/Recommendation Comments 1. Continue with CCHO 60gm diet as ordered. Considering poor PO intake, no need for protein limit at this time. MD to consider appetite stimulant if PO intake continue low. 2. Monitor PO intake, wt, labs and skin integrity 3. F/U as high risk in 2-3 days Expected Outcomes/Goals Expected Outcomes/Goals 1. PO intake to meet at least 75% of nutritional needs. 2. Wt stability, skin to remain intact, labs to approach WNL.
--- NOTE | 2018-09-08 14:39 | General Progress Note ---
Subjective - Review of Systems Service Date: 09/08/18 Subjective: awake, comfortable, nonverbl Objective - Results Result Diagrams: 09/08/18 05:10 09/08/18 05:10 Recent Labs: Laboratory Last Values WBC 10.7 Th/cmm (4.8-10.8) 09/08/18 05:10 RBC 4.08 Mil/cmm (3.80-5.20) 09/08/18 05:10 Hgb 12.6 gm/dL (12-16) 09/08/18 05:10 Hct 38.0 % (41.0-60) L 09/08/18 05:10 MCV 92.9 fl (81-100) 09/08/18 05:10 MCH 31.0 pg (27.0-31.0) 09/08/18 05:10 MCHC Differential 33.3 pg (28.0-36.0) 09/08/18 05:10 RDW 13.7 % (11.5-20.0) 09/08/18 05:10 Plt Count 218 Th/cmm (150-400) 09/08/18 05:10 MPV 8.2 fl 09/08/18 05:10 Neutrophils % 69.4 % (40.0-80.0) 09/08/18 05:10 Lymphocytes % 20.4 % (20.0-50.0) 09/08/18 05:10 Monocytes % 7.1 % (2.0-10.0) 09/08/18 05:10 Eosinophils % 2.8 % (0.0-5.0) 09/08/18 05:10 Basophils % 0.3 % (0.0-2.0) 09/08/18 05:10 Eos Smear Source URINE 09/07/18 18:00 Eos Smear Total Cells NONE SEEN (NONE SEEN) 09/07/18 18:00 Sodium 139 mEq/L (136-145) 09/08/18 05:10 Potassium 4.0 mEq/L (3.5-5.1) 09/08/18 05:10 Chloride 105 mEq/L (98-107) 09/08/18 05:10 Carbon Dioxide 26.9 mEq/L (21.0-31.0) 09/08/18 05:10 Anion Gap 11.1 (7.0-16.0) 09/08/18 05:10 BUN 18 mg/dL (7-25) 09/08/18 05:10 Creatinine 1.2 mg/dL (0.6-1.2) 09/08/18 05:10 Est GFR ( Amer) TNP 09/08/18 05:10 Est GFR (Non-Af Amer) TNP 09/08/18 05:10 BUN/Creatinine Ratio 15.0 09/08/18 05:10 Glucose 175 mg/dL (70-105) H 09/08/18 05:10 POC Glucose 126 MG/DL (70 - 105) H 09/06/18 15:18 Whole Bld Lactic Acid 1.46 mmol/L (0.60-1.99) 09/08/18 05:10 Uric Acid 6.1 mg/dL (2.3-6.6) 09/08/18 05:10 Calcium 9.3 mg/dL (8.6-10.3) 09/08/18 05:10 Phosphorus 3.5 mg/dL (2.5-5.0) 09/08/18 05:10 Magnesium 1.9 mg/dL (1.9-2.7) 09/08/18 05:10 Total Bilirubin 0.2 mg/dL (0.3-1.0) L 09/05/18 20:40 AST 18 U/L (13-39) 09/05/18 20:40 ALT 11 U/L (7-52) 09/05/18 20:40 Alkaline Phosphatase 96 U/L (34-104) 09/05/18 20:40 Troponin I 0.01 ng/mL (0.01-0.05) 09/05/18 20:40 B-Natriuretic Peptide 88.1 pg/mL (5.0-100.0) 09/05/18 20:40 Total Protein 7.3 gm/dL (6.0-8.3) 09/05/18 20:40 Albumin 3.5 gm/dL (3.7-5.3) L 09/05/18 20:40 Globulin 3.8 gm/dL 09/05/18 20:40 Albumin/Globulin Ratio 0.9 (1.0-1.8) L 09/05/18 20:40 TSH 2.69 uIU/ml (0.34-5.60) 09/05/18 20:40 Urine Source CLEAN C 09/05/18 23:10 Urine Color YELLOW 09/05/18 23:10 Urine Clarity HAZY (CLEAR) 09/05/18 23:10 Urine pH 7.0 (4.6 - 8.0) 09/05/18 23:10 Ur Specific [place] 1.020 (1.005-1.030) 09/05/18 23:10 Urine Protein TRACE mg/dL (NEGATIVE) 09/05/18 23:10 Urine Glucose (UA) 100 mg/dL (NEGATIVE) H 09/05/18 23:10 Urine Ketones NEGATIVE mg/dL (NEGATIVE) 09/05/18 23:10 Urine Blood NEGATIVE (NEGATIVE) 09/05/18 23:10 Urine Nitrate POSITIVE (NEGATIVE) H 09/05/18 23:10 Urine Bilirubin NEGATIVE (NEGATIVE) 09/05/18 23:10 Urine Urobilinogen 0.2 E.U./dL (0.2 - 1.0) 09/05/18 23:10 Ur Leukocyte Esterase TRACE (NEGATIVE) H 09/05/18 23:10 Urine RBC 0-2 /hpf (0-5) 09/05/18 23:10 Urine WBC 2-5 /hpf (0-5) 09/05/18 23:10 Ur Epithelial Cells FEW /lpf (FEW) 09/05/18 23:10 Urine Bacteria MANY /hpf (NONE SEEN) H 09/05/18 23:10 Ur Random Sodium 137 mmol/L 09/07/18 18:00 Urine Creatinine 41.0 mg/dl (28.0-217.0) 09/07/18 18:00 Microalb/Creat Ratio 273.6 mg/g creat (0.0-30.0) H 09/07/18 18:00 - Physical Exam Vitals and I&O: Vital Signs Temp 96.0 F 09/08/18 11:36 Pulse 66 09/08/18 11:36 Resp 17 09/08/18 11:36 BP 122/43 09/08/18 11:36 Pulse Ox 98 09/08/18 11:36 Intake & Output 09/07/18 09/08/18 09/08/18 18:59 06:59 18:59 Intake Total 720 50 Output Total 300 Balance 420 50 Weight (lbs) 80.739 kg 80.739 kg Intake: Intake, IV Amount 50 cefTRIAXone 1 gm In 50 Sodium Chloride 0.9% 50 ml @ 100 mls/hr IV Q24HR [facility] Rx#:[id number] Oral 720 Output: Urine 300 Other: # Voids 3 2 # Bowel Movements 0 0 Weight Source Estimated Bedscale Active Medications: Current Medications Amlodipine Besylate (Norvasc) 10 mg PO DAILY [facility] Stop: 11/06/18 08:59 Last Admin: 09/08/18 08:57 Dose: 10 mg Aspirin (Aspirin Chewable) 81 mg PO DAILY [facility] Stop: 11/06/18 08:59 Last Admin: 09/08/18 08:58 Dose: 81 mg Atenolol (Tenormin) 25 mg PO DAILY [facility] Stop: 11/06/18 08:59 Last Admin: 09/08/18 08:57 Dose: 25 mg Calcium/Vitamin D (Oscal W/Vitamin D) 1 tab PO BID [facility] Stop: 11/06/18 08:59 Last Admin: 09/08/18 08:57 Dose: 1 tab Docusate Sodium (Colace) 100 mg PO DAILY [facility] Stop: 11/06/18 08:59 Last Admin: 09/08/18 08:57 Dose: 100 mg Donepezil HCl (Aricept) 10 mg PO HS [facility] Stop: 11/05/18 20:59 Last Admin: 09/07/18 21:35 Dose: 10 mg Fluticasone Propionate (Flonase) 1 spr NS DAILY PRN PRN Reason: Nasal Congestion Stop: 11/05/18 20:25 Glipizide (Glucotrol) 5 mg PO DAILY [facility] Stop: 11/06/18 08:59 Last Admin: 09/08/18 08:58 Dose: 5 mg Dextrose/Sodium Chloride (D5-0.45ns) 1,000 mls @ 75 mls/hr IV .[id number] [facility] Stop: 11/05/18 02:03 Last Admin: 09/08/18 06:49 Dose: 75 mls/hr Ceftriaxone Sodium 1 gm/ (Sodium Chloride) 50 mls @ 100 mls/hr IV Q24HR [facility] Stop: 09/13/18 01:29 Last Infusion: 09/08/18 01:41 Dose: Infused Lactobacillus Rhamnosus (Culturelle 15b) 1 each PO DAILY [facility] Stop: 11/08/18 08:59 Megestrol Acetate (Megace) 40 mg PO DAILY [facility]; Protocol Stop: 11/06/18 14:44 Last Admin: 09/08/18 08:58 Dose: 40 mg Memantine (Namenda) 5 mg PO BID [facility] Stop: 11/06/18 08:59 Last Admin: 09/08/18 08:58 Dose: 5 mg Mirtazapine (Remeron) 15 mg PO HS [facility]; Protocol Stop: 11/05/18 20:59 Last Admin: 09/07/18 21:35 Dose: 15 mg Miscellaneous (Probiotic Screen) 1 ea MC PRN PRN PRN Reason: PROTOCOL Stop: 11/07/18 12:53 Simvastatin (Zocor) 20 mg PO HS [facility] Stop: 11/05/18 20:59 Last Admin: 09/07/18 21:35 Dose: 20 mg General: Alert, No acute distress HEENT: Atraumatic, Mucous membr. moist/pink Neck: Supple, +2 carotid pulse wo bruit Cardiovascular: Regular rate, Normal S1, Normal S2 Lungs: Clear to auscultation Abdomen: Bowel sounds, Soft Extremities: no Edema Skin: no Significant lesion Psych/Mental Status: Mood NL Assessment/Plan - Assessment Assessment: ELLIOTT on CKD FTT Alzh Dementia Ess Htn w/ CKD T2DM w/ CKD Dyslipidemia - Plan Plan: Lab - Result Diagrams 09/08/18 05:10 09/08/18 05:10 Current Medications Amlodipine Besylate (Norvasc) 10 mg PO DAILY [facility] Stop: 11/06/18 08:59 Last Admin: 09/08/18 08:57 Dose: 10 mg Aspirin (Aspirin Chewable) 81 mg PO DAILY [facility] Stop: 11/06/18 08:59 Last Admin: 09/08/18 08:58 Dose: 81 mg Atenolol (Tenormin) 25 mg PO DAILY [facility] Stop: 11/06/18 08:59 Last Admin: 09/08/18 08:57 Dose: 25 mg Calcium/Vitamin D (Oscal W/Vitamin D) 1 tab PO BID [facility] Stop: 11/06/18 08:59 Last Admin: 09/08/18 08:57 Dose: 1 tab Docusate Sodium (Colace) 100 mg PO DAILY [facility] Stop: 11/06/18 08:59 Last Admin: 09/08/18 08:57 Dose: 100 mg Donepezil HCl (Aricept) 10 mg PO HS [facility] Stop: 11/05/18 20:59 Last Admin: 09/07/18 21:35 Dose: 10 mg Fluticasone Propionate (Flonase) 1 spr NS DAILY PRN PRN Reason: Nasal Congestion Stop: 11/05/18 20:25 Glipizide (Glucotrol) 5 mg PO DAILY [facility] Stop: 11/06/18 08:59 Last Admin: 09/08/18 08:58 Dose: 5 mg Dextrose/Sodium Chloride (D5-0.45ns) 1,000 mls @ 75 mls/hr IV .[id number] [facility] Stop: 11/05/18 02:03 Last Admin: 09/08/18 06:49 Dose: 75 mls/hr Ceftriaxone Sodium 1 gm/ (Sodium Chloride) 50 mls @ 100 mls/hr IV Q24HR [facility] Stop: 09/13/18 01:29 Last Infusion: 09/08/18 01:41 Dose: Infused Lactobacillus Rhamnosus (Culturelle 15b) 1 each PO DAILY [facility] Stop: 11/08/18 08:59 Megestrol Acetate (Megace) 40 mg PO DAILY [facility]; Protocol Stop: 11/06/18 14:44 Last Admin: 09/08/18 08:58 Dose: 40 mg Memantine (Namenda) 5 mg PO BID [facility] Stop: 11/06/18 08:59 Last Admin: 09/08/18 08:58 Dose: 5 mg Mirtazapine (Remeron) 15 mg PO HS [facility]; Protocol Stop: 11/05/18 20:59 Last Admin: 09/07/18 21:35 Dose: 15 mg Miscellaneous (Probiotic Screen) 1 ea MC PRN PRN PRN Reason: PROTOCOL Stop: 11/07/18 12:53 Simvastatin (Zocor) 20 mg PO HS [facility] Stop: 11/05/18 20:59 Last Admin: 09/07/18 21:35 Dose: 20 mg Lab - Result Diagrams 09/08/18 05:10 09/08/18 05:10 kidney fnc better continue hydration encourage po intake Nutritional Asmnt/Malnutr-PDOC - Dietary Evaluation Malnutrition Findings (Please click <Entered> for more info): Nutritional Asmnt/Malnutrition Start: 09/06/18 15: 04 Text: Status: Complete Freq: Protocol: Document 09/06/18 15:04 [email or web address] (Rec: 09/06/18 15:12 YULI [email or web address]) Nutritional Asmnt/Malnutrition Patient General Information Nutritional Screening High Risk Diagnosis UTI Pertinent Medical Hx/Surgical Hx HTN, DM, dementia, CKD 4 Subjective Information Pt seen sleeping in bed at time of visit. Per nurse note, pt refused breakfast and lunch. Current Diet Order/ Nutrition Support CCHO 60gm Pertinent Medications D5-0.45ns Pertinent Labs 09/06 Cl 109, BUN 32, Cr 1.5, glucose 155 09/05 BUN 37, Cr 1.7, GLucose 272 Nutritional Hx/Data Height 1.27 m Height (Calculated Centimeters) 127.0 Current Weight (lbs) 80.739 kg Weight (Calculated Kilograms) 80.7 Weight (Calculated Grams) 18113.4 [place] Body Weight 80 Body Mass Index (BMI) 50.1 Weight Status Obese GI Symptoms GI Symptoms None Last BM none Difficult in: None Skin Integrity/Comment: intact Current %PO Negligible < 25% Estimated Nutritional Goals BEE in Kcals: Adj wt of IBW Calories/Kcals/Kg 25-30 ajd wt 48kg Kcals Calculated 0736-8235 Protein: Adj wt of IBW Protein g/k Protein Calculated 48 Fluid: ml 1200-1440ml (1ml/kcal) Nutritional Problem 1. Problem Problem inadequate food intake Etiology poor appetite Signs/Symptoms: PO itnake <10% Malnutrition Alert Is there a minimum of two criteria No selected? Query Text:Check all the applicable criteria. A minimum of two criteria are recommended for diagnosis of either severe or non-severe malnutrition. Malnutrition Related to Morbid Obesity Malnutrition related to morbid obesity No Intervention/Recommendation Comments 1. Continue with CCHO 60gm diet as ordered. Considering poor PO intake, no need for protein limit at this time. MD to consider appetite stimulant if PO intake continue low. 2. Monitor PO intake, wt, labs and skin integrity 3. F/U as high risk in 2-3 days Expected Outcomes/Goals Expected Outcomes/Goals 1. PO intake to meet at least 75% of nutritional needs. 2. Wt stability, skin to remain intact, labs to approach WNL.
[2018-09-09] MEDS: cefTRIAXone 1 GM in Sodium Chloride 0.9% 50 ML IV SCH (00:30)
[2018-09-09 06:30] LABS: % BASOPHILS 0.5 % (0.0-2.0); % EOSINOPHILS 2.9 % (0.0-5.0); % LYMPHOCYTES 21.6 % (20.0-50.0); % MONOCYTES 6.4 % (2.0-10.0); % NEUTROPHILS 68.6 % (40.0-80.0); EOSINOPHILE ABSOLUTE 0.3 Th/cmm (0.1-0.4); HEMATOCRIT 37.9 % (41.0-60); HEMOGLOBIN 12.5 gm/dL (12-16); MEAN CELL VOLUME 91.8 fl (81-100); MEAN CORPUSCULAR HEMOGLOBIN 30.3 pg (27.0-31.0); MEAN CORPUSCULAR HGB CONC 32.9 pg (28.0-36.0); MEAN PLATELET VOLUME 7.7 fl; MONOCYTE ABSOLUTE 0.6 Th/cmm (0.3-1.0); NEUTROPHILE ABSOLUTE 6.3 Th/cmm (1.8-8.0); PLATELET COUNT 204 Th/cmm (150-400); RED BLOOD COUNT 4.13 Mil/cmm (3.80-5.20); RED CELL DISTRIBUTION WIDTH 13.9 % (11.5-20.0); WHITE BLOOD COUNT 9.2 Th/cmm (4.8-10.8)
[2018-09-09 06:49] LABS: ANION GAP 12.8 (7.0-16.0); BUN - UREA NITROGEN 18 mg/dL (7-25); CALCIUM SERUM 9.2 mg/dL (8.6-10.3); CARBON DIOXIDE 23.2 mEq/L (21.0-31.0); CHLORIDE 107 mEq/L (98-107); CREATININE - SERUM 1.2 mg/dL (0.6-1.2); GLUCOSE 126 mg/dL (70-105); SODIUM SERUM 139 mEq/L (136-145)
[2018-09-09] MEDS ORDERED: Lactobacillus Rhamnosus GG 15 Billion CFU CAP.SPRINK PO SCH (09:00)
== END 2018-09-09 08:10 | DRG 871 ==
LOC: ER 17:57 → MSI 09-06 00:30
PROVIDERS: ADMIT Internal Medicine; ATTEND Internal Medicine
DX: A41.9 Sepsis, unspecified organism (principal); R53.2 Functional quadriplegia; N17.9 Acute kidney failure, unspecified; N39.0 Urinary tract infection, site not specified; L03.116 Cellulitis of left lower limb; L03.115 Cellulitis of right lower limb; R47.01 Aphasia; E86.0 Dehydration; G30.9 Alzheimer's disease, unspecified; F02.80 Dementia in other diseases classified elsewhere, unspecified severity, without behavioral disturbance, psychotic disturbance, mood disturbance, and anxiety; N18.9 Chronic kidney disease, unspecified; E11.22 Type 2 diabetes mellitus with diabetic chronic kidney disease; Z66 Do not resuscitate; I12.9 Hypertensive chronic kidney disease with stage 1 through stage 4 chronic kidney disease, or unspecified chronic kidney disease; R62.7 Adult failure to thrive; E78.5 Hyperlipidemia, unspecified; Z88.5 Allergy status to narcotic agent
CPT/HCPCS: 36415-UA; 71045-TC; 76770-TC; 80048-TC; 80053-TC; 81001-TC; 81015-TC; 82043-90; 82570-TC; 82948-90; 83036-90; 83605; 83735-TC; 83880-TC; 84100-TC; 84300-TC; 84443-TC; 84484-TC; 84550-TC; 85025-TC; 87086-90; 93005; J0696; J7030; Z7610